=== PATIENT | male | born 1970 ===

== ENCOUNTER 2024-03-03 11:30 | Outpatient (CLI) | payer OTHER, SELFPAY ==
--- NOTE | 2024-03-03 | DI.RAD_ITS ---
Exam(s) XR CHEST 2V PA LATERAL EXAM: XR CHEST 2V PA LATERAL CLINICAL HISTORY: Mild intermittent asthma with acute exacerbation, J45.21; cough x 4 days TECHNIQUE: 2D digital imaging was performed of the chest. Two images were obtained. PA and lateral views were obtained. COMPARISON: No exams were available for comparison FINDINGS: MEDIASTINUM: Normal. HEART: Normal. PULMONARY VASCULATURE: Normal. LUNGS: No focal consolidating infiltrates are seen. The lung superior hyperinflated. Mild interstit ial prominence is seen in the perihilar region. Reactive airways disease/bronchitis should be consid ered. PLEURAL SPACE: No pleural effusion or pneumothorax. BONE:Within normal limits for the patient's age. There is a mild right convex curvature of the thora cic spine. Anterior cervical disc fusion is seen in the lower cervical spine. OTHER FINDINGS:Normal. IMPRESSION: 1. Mild hyperinflation of the lungs. Mild perihilar interstitial prominence. This may represent alida ctive airways disease/bronchitis. 2. No focal consolidating infiltrate. DATA REPOSITORY: RADIATION DOSE DELIVERED:
== END 2024-03-03 11:50 ==
PROVIDERS: Visit Provider Nurse Practitioner Family
DX: R91.8 Other nonspecific abnormal finding of lung field (principal)
CPT/HCPCS: 71046